=== PATIENT | male | born 1940 | race Caucasian/White ===

== ENCOUNTER 2020-05-06 20:45 | Emergency (ER) | payer MEDICARE ==
--- NOTE | 2020-05-06 21:38 | EDM.PDOC ---
ED HPI GENERAL MEDICAL PROBLEM - General Chief Complaint: Neuro Symptoms/Deficits Stated Complaint: MEMORY ISSUE Time Seen by Provider: 05/06/20 21:05 Source of Information: Reports: Patient, Family History Limitations: Reports: Altered Mental Status - History of Present Illness INITIAL COMMENTS - FREE TEXT/NARRATIVE: brought in by girlfriend of 30+ years She states she was baking cookies around noon , when he asked her about 6 times what she was doing despite telling him each time ( that was unusual for him) Asked her about dog they had put down about 2 days ago , where the dog was Asked her His eyes seemed very glazzy un like usual She called EMS for him no history of falls pt is on Eloquis for Afib ( irregular rhythm Onset: Today Onset Date: 05/06/20 Onset Time: 12:00 Duration: Hour(s): (8), Getting Worse Location: Reports: Head Improves with: Reports: None Worsens with: Reports: None Context: Denies: Trauma Associated Symptoms: Reports: No Other Symptoms - Related Data Allergies Allergy/AdvReac Type Severity Reaction Status Date / Time No Known Allergies Allergy Verified 05/06/20 21:34 Home Meds: Home Meds Apixaban [Eliquis] 5 mg PO DAILY 05/06/20 [History] Loratadine 10 mg PO DAILY PRN 05/06/20 [History] Metoprolol Tartrate 25 mg PO DAILY 05/06/20 [History] Simvastatin 40 mg PO DAILY 05/06/20 [History] allopurinoL [Zyloprim] 300 mg PO DAILY 05/06/20 [History] ED ROS GENERAL - Review of Systems Review Of Systems: See Below Constitutional: Denies: Fever, Chills, Malaise, Weakness HEENT: Reports: No Symptoms Respiratory: Reports: Shortness of Breath (at rest , chronically) Cardiovascular: Reports: Dyspnea on Exertion Endocrine: Reports: No Symptoms GI/Abdominal: Reports: No Symptoms : Reports: No Symptoms Musculoskeletal: Reports: No Symptoms Skin: Reports: No Symptoms Neurological: Reports: Confusion, Difficulty Walking, Gait Disturbance Psychiatric: Reports: No Symptoms Hematologic/Lymphatic: Reports: No Symptoms ED EXAM, NEURO - Physical Exam Exam: See Below Exam Limited By: No Limitations General Appearance: Alert, WD/WN, No Apparent Distress Eye Exam: Bilateral Eye: EOMI Ears: Normal External Exam, Normal Canal, Hearing Grossly Normal, Normal TMs Nose: Normal Inspection, Normal Mucosa Throat/Mouth: Normal Inspection, Normal Lips Head Exam: Atraumatic, Normocephalic Neck: Normal Inspection, Supple, Non-Tender, Full Range of Motion Respiratory/Chest: No Respiratory Distress, Lungs Clear, Normal Breath Sounds Cardiovascular: Normal Peripheral Pulses, Irregularly Irregular GI/Abdominal: Soft, Non-Tender Neurological: Alert, Normal Mood/Affect, Normal Dorsiflexion, CN II-XII Intact, Normal Gait, No Motor/Sensory Deficits, Oriented x 3 DTR: 2+: Patella (R), Patella (L) Back Exam: Normal Inspection, Full Range of Motion Extremities: Normal Inspection, Normal Range of Motion, Non-Tender, Pedal Edema Psychiatric: Normal Affect, Normal Mood Skin Exam: Warm, Dry, Intact *Q Meaningful Use (ADM) - VTE *Q VTE Mechanical Contraindications *Q: At Risk for Falls VTE Pharmacological Contraindications *Q: Risk of Bleeding VTE Anticoagulation Contraindications: Clinical Trial Particpnt - VTE Risk Assess *Q Each Risk Factor Represents 1 Point: None Total Score 1 Point Risk Factors: 0 - Tobacco (TOB) Core Measure 1:1 Practical Counseling Performed: N/A Course - Vital Signs Last Recorded V/S: Last Vital Signs Temp 35.6 C L 05/06/20 21:00 Pulse 71 05/06/20 21:00 Resp 20 05/06/20 22:15 BP 159/94 H 05/06/20 22:38 Pulse Ox 98 05/06/20 22:15 - Orders/Labs/Meds Orders: Active Orders 24 hr Category Date Time Status EKG Documentation Completion [RC] ASDIRECTED Care 05/06/20 21:30 Active Head wo Cont [CT] Stat Exams 05/06/20 21:28 Taken EKG 12 Lead [EK] Routine Ther 05/06/20 21:29 Ordered Labs: Laboratory Tests 05/06/20 05/06/20 05/06/20 Range/Units 21:22 21:22 21:22 WBC 8.9 (4.5-12.0) X10-3/uL RBC 5.10 (4.30-5.75) x10(6)uL Hgb 16.1 (13.5-17.8) g/dL Hct 47.0 (30.0-51.3) % MCV 92.1 (80-96) fL MCH 31.6 (27.7-33.6) pg MCHC 34.3 (32.2-35.4) g/dL RDW 12.7 (11.5-15.5) % Plt Count 236 (125-369) X10(3)uL PT (9.0-11.1) sec INR (1.00-1.24) Sodium 139 (135-145) mmol/L Potassium 4.2 (3.5-5.3) mmol/L Chloride 103 (100-110) mmol/L Carbon Dioxide 29 (21-32) mmol/L BUN 15 (7-18) mg/dL Creatinine 1.2 (0.70-1.30) mg/dL Est Cr Clr Drug Dosing 51.55 mL/min Estimated GFR (MDRD) 59 L (>60) BUN/Creatinine Ratio 12.5 (9-20) Glucose 98 (80-116) mg/dL Calcium 9.0 (8.6-10.2) mg/dL Magnesium 2.0 (1.8-2.5) mg/dL Total Bilirubin 0.6 (0.1-1.3) mg/dL AST 26 H (5-25) IU/L ALT 37 H (12-36) U/L Alkaline Phosphatase 126 H (56-112) IU/L Troponin I 7.0 (4.0-60.3) pg/mL C-Reactive Protein 1.3 H (0.5-0.9) mg/dL NT-Pro-B Natriuret Pep 958 H (<=450) pg/mL Total Protein 6.3 (6.0-8.0) g/dL Albumin 3.2 (3.2-4.6) g/dL Globulin 3.1 g/dL Albumin/Globulin Ratio 1.0 Urine Color (YELLOW) Urine Appearance (CLEAR) Urine pH (5.0-6.5) Ur Specific [place] (1.010-1.025) Urine Protein (NEGATIVE) mg/dL Urine Glucose (UA) (NORMAL) mg/dL Urine Ketones (NEGATIVE) mg/dL Urine Occult Blood (NEGATIVE) Urine Nitrite (NEGATIVE) Urine Bilirubin (NEGATIVE) Urine Urobilinogen (NEGATIVE) mg/dL Ur Leukocyte Esterase (NEGATIVE) Urine RBC (0-5) Urine WBC (0-5) Ur Squamous Epith Cells (NS,R,O) Urine Bacteria (NS) Urine Mucus (NS) 05/06/20 05/06/20 Range/Units 21:22 22:02 WBC (4.5-12.0) X10-3/uL RBC (4.30-5.75) x10(6)uL Hgb (13.5-17.8) g/dL Hct (30.0-51.3) % MCV (80-96) fL MCH (27.7-33.6) pg MCHC (32.2-35.4) g/dL RDW (11.5-15.5) % Plt Count (125-369) X10(3)uL PT 10.6 (9.0-11.1) sec INR 0.98 L (1.00-1.24) Sodium (135-145) mmol/L Potassium (3.5-5.3) mmol/L Chloride (100-110) mmol/L Carbon Dioxide (21-32) mmol/L BUN (7-18) mg/dL Creatinine (0.70-1.30) mg/dL Est Cr Clr Drug Dosing mL/min Estimated GFR (MDRD) (>60) BUN/Creatinine Ratio (9-20) Glucose (80-116) mg/dL Calcium (8.6-10.2) mg/dL Magnesium (1.8-2.5) mg/dL Total Bilirubin (0.1-1.3) mg/dL AST (5-25) IU/L ALT (12-36) U/L Alkaline Phosphatase (56-112) IU/L Troponin I (4.0-60.3) pg/mL C-Reactive Protein (0.5-0.9) mg/dL NT-Pro-B Natriuret Pep (<=450) pg/mL Total Protein (6.0-8.0) g/dL Albumin (3.2-4.6) g/dL Globulin g/dL Albumin/Globulin Ratio Urine Color Yellow (YELLOW) Urine Appearance Slightly cloudy (CLEAR) Urine pH 5.0 (5.0-6.5) Ur Specific [place] 1.020 (1.010-1.025) Urine Protein Trace (NEGATIVE) mg/dL Urine Glucose (UA) Normal (NORMAL) mg/dL Urine Ketones 15 H (NEGATIVE) mg/dL Urine Occult Blood Trace (NEGATIVE) Urine Nitrite Negative (NEGATIVE) Urine Bilirubin Negative (NEGATIVE) Urine Urobilinogen 1 H (NEGATIVE) mg/dL Ur Leukocyte Esterase Large H (NEGATIVE) Urine RBC 0-5 (0-5) Urine WBC 20-30 H (0-5) Ur Squamous Epith Cells Few H (NS,R,O) Urine Bacteria Few H (NS) Urine Mucus Moderate H (NS) - Re-Assessments/Exams Free Text/Narrative Re-Assessment/Exam: 05/06/20 23:28 pt was able to answer questions appropriately but seemed to forget other things had head CT done: ? Old subdural hematoma discussed with pt and friend , he needs to FU in clinic this week and get MRI done for further evaluation pt would have preffered to be seen in [place] but states it would l take long fo him to get Will see provider in the clinic her for possible MRI for further evaluation of symptoms 05/06/20 23:41 Unsure whether chronic subdural hematoma is new will need FU MRI Free Text/Narrative Re-Assessment/Exam: 05/06/20 23:40 MRI ordered for pt : will get this done in am 05/07/2020 Departure - Departure Time of Disposition: 11:45 Disposition: Home, Self-Care 01 Condition: Fair Clinical Impression: Memory deficit, Chronic subdural hematoma, Afib, Chronic anticoagulation - Discharge Information *PRESCRIPTION DRUG MONITORING PROGRAM REVIEWED*: Not Applicable *COPY OF PRESCRIPTION DRUG MONITORING REPORT IN PATIENT GERALD: Not Applicable Instructions: Bleeding Precautions When on Anticoagulant Therapy, Adult, Prev enting Atrial Fibrillation-Related Stroke Referrals: PCP,None [Primary Care Provider] - Forms: ED Department Discharge Additional Instructions: 1) make appointment to see a PCP in the clinic this week. You will need to get MRI done 2) if symptoms get worse , return to ER or the [place] [facility] 3) continue with all your medications Sepsis Event Note (ED) - Focused Exam Vital Signs: Vital Signs Temp Pulse Resp BP BP Pulse Ox 05/06/20 22:38 159/94 H 05/06/20 22:15 20 150/104 H 98 05/06/20 22:00 20 156/108 H 98 05/06/20 21:00 35.6 C L 71 22 H 168/102 H 96 - My Orders Last 24 Hours: My Active Orders 05/06/20 21:28 Head wo Cont [CT] Stat 05/06/20 21:29 EKG 12 Lead [EK] Routine 05/06/20 21:30 EKG Documentation Completion [RC] ASDIRECTED - Assessment/Plan Last 24 Hours: My Active Orders 05/06/20 21:28 Head wo Cont [CT] Stat 05/06/20 21:29 EKG 12 Lead [EK] Routine 05/06/20 21:30 EKG Documentation Completion [RC] ASDIRECTED
== END 2020-05-06 23:48 | disposition home or self-care (01) ==
LOC: FB.ED 20:45
DX: I62.03 Nontraumatic chronic subdural hemorrhage (principal); I48.91 Unspecified atrial fibrillation; I69.811 Memory deficit following other cerebrovascular disease; Z79.01 Long term (current) use of anticoagulants; Z79.899 Other long term (current) drug therapy
CPT/HCPCS: 36415; 70450; 80053; 81001; 83735; 83880; 84484; 85027; 85610; 86140; 93005; 93010; 99284; 99285-25

== ENCOUNTER 2021-01-14 15:16 | Emergency (ER) | payer MEDICARE, OTHER ==
--- NOTE | 2021-01-14 16:47 | EDM.PDOC ---
ED HPI GENERAL MEDICAL PROBLEM - General Stated Complaint: DIZZY SPELSS Time Seen by Provider: 01/14/21 15:20 Source of Information: Reports: Patient History Limitations: Reports: No Limitations - History of Present Illness INITIAL COMMENTS - FREE TEXT/NARRATIVE: Patient presented to the ED because of dizziness for 2 weeks. He said as soon as he gets uo he feels dizzy, lightheaded with associated tinnitus. He described it as spinning sensation which usually last for few seconds then resolves. There is no motor and sensory deficits during the episode of vertigo. - Related Data Allergies Allergy/AdvReac Type Severity Reaction Status Date / Time No Known Allergies Allergy Verified 05/06/20 21:34 Home Meds: Home Meds Apixaban [Eliquis] 5 mg PO DAILY 05/06/20 [History] Loratadine 10 mg PO DAILY PRN 05/06/20 [History] Metoprolol Tartrate 25 mg PO DAILY 05/06/20 [History] Simvastatin 40 mg PO DAILY 05/06/20 [History] allopurinoL [Zyloprim] 300 mg PO DAILY 05/06/20 [History] ED ROS GENERAL - Review of Systems Review Of Systems: See Below Constitutional: Reports: No Symptoms HEENT: Reports: No Symptoms Respiratory: Reports: No Symptoms Cardiovascular: Reports: No Symptoms Endocrine: Reports: No Symptoms GI/Abdominal: Reports: No Symptoms : Reports: No Symptoms Musculoskeletal: Reports: No Symptoms Skin: Reports: No Symptoms Neurological: Reports: Dizziness Psychiatric: Reports: No Symptoms Hematologic/Lymphatic: Reports: No Symptoms ED EXAM, NEURO - Physical Exam Exam: See Below Exam Limited By: No Limitations General Appearance: Alert, No Apparent Distress Eye Exam: Bilateral Eye: Proptosis Ears: Normal External Exam, Normal Canal Nose: Normal Inspection, Normal Mucosa, No Blood Throat/Mouth: Normal Inspection, Normal Lips, Normal Teeth, Normal Gums Head Exam: Atraumatic, Normocephalic Neck: Normal Inspection, Supple, Non-Tender, Full Range of Motion Respiratory/Chest: No Respiratory Distress, Lungs Clear, Normal Breath Sounds Cardiovascular: Normal Peripheral Pulses, Regular Rate, Rhythm, No Edema, No Gallop GI/Abdominal: Normal Bowel Sounds, Soft, Non-Tender, No Organomegaly Neurological: Alert, Normal Mood/Affect, Normal Dorsiflexion, CN II-XII Intact, Normal Plantar Flexion, Normal Gait, Normal Reflexes #1 Interpretation EKG Date: 01/14/21 Time: 15:22 Rhythm: A-Fib Rate (Beats/Min): 85 [place]: Normal P-Wave: Present QRS: Other (LAFB) ST-T: Normal QT: Normal Comparison: No Change EKG Interpretation Comments: Lab and EKG was reviewed and discussed with patient. Course - Vital Signs Last Recorded V/S: Last Vital Signs Temp 36.8 C 01/14/21 15:16 Pulse 92 01/14/21 15:16 Resp 20 01/14/21 15:16 BP 139/88 01/14/21 15:16 Pulse Ox 94 L 01/14/21 15:16 Orthostatic Blood Pressure [ 140/90 Standing] Orthostatic Blood Pressure [ 137/93 Sitting] Orthostatic Blood Pressure [ 132/86 Supine] - Orders/Labs/Meds Orders: Active Orders 24 hr Category Date Time Status Head wo Cont [CT] Stat Exams 01/14/21 16:08 Stop Req EKG 12 Lead [EK] Routine Ther 01/14/21 15:47 Ordered Labs: Laboratory Tests 01/14/21 01/14/21 01/14/21 Range/Units 15:55 15:55 15:55 WBC 8.7 (3.2-10.1) x10-3/uL RBC 5.12 (3.90-5.90) x10(6)uL Hgb 16.3 (12.9-17.7) g/dL Hct 49.3 (38.3-50.1) % MCV 96.2 (80.8-98.7) fL MCH 31.9 (27.0-33.3) pg MCHC 33.1 (28.7-35.3) g/dL RDW 13.8 (12.4-15.0) % Plt Count 188 (117-477) x10(3)uL MPV 9.9 (6.7-11.0) fL Neut % (Auto) 76.5 H (40.3-71.8) % Lymph % (Auto) 10.2 L (15.8-45.3) % [place] % (Auto) 10.2 (5.5-15.2) % Eos % (Auto) 2.4 (0.1-6.8) % Baso % (Auto) 0.7 (0.3-3.8) % Neut # (Auto) 6.6 (1.7-6.9) x10-3/uL Lymph # (Auto) 0.9 (0.5-4.5) x10-3/uL [place] # (Auto) 0.9 (0.0-1.2) x10-3/uL Eos # (Auto) 0.2 (0.0-0.6) x10-3/uL Baso # (Auto) 0.1 (0.0-0.3) x10-3/uL Sodium 147 H (135-145) mmol/L Potassium 4.6 (3.5-5.3) mmol/L Chloride 109 D (100-110) mmol/L Carbon Dioxide 26 (21-32) mmol/L BUN 29 H D (7-18) mg/dL Creatinine 1.4 H (0.70-1.30) mg/dL Est Cr Clr Drug Dosing 43.49 mL/min Estimated GFR (MDRD) 49 L (>60) BUN/Creatinine Ratio 20.7 H (9-20) Glucose 89 (80-116) mg/dL Calcium 8.8 (8.6-10.2) mg/dL Total Bilirubin 0.5 (0.1-1.3) mg/dL AST 31 H D (5-25) IU/L ALT 47 H D (12-36) U/L Alkaline Phosphatase 119 H (56-112) IU/L Troponin I 7.2 (4.0-60.3) pg/mL Total Protein 6.4 (6.0-8.0) g/dL Albumin 3.4 (3.2-4.6) g/dL Globulin 3.0 g/dL Albumin/Globulin Ratio 1.1 Departure - Departure Time of Disposition: 21:00 Disposition: Home, Self-Care 01 Condition: Good Clinical Impression: Vertigo, Dehydration - Discharge Information Instructions: Vertigo, [id number], Dehydration, Adult, [id number] Referrals: Darren Rose MD [Primary Care Provider] - Forms: ED Department Discharge Additional Instructions: Please read discharge instructions on vertigo and dehydration Drink at least 2 liters of water daily Follow up as needed Sepsis Event Note (ED) - Evaluation Sepsis Screening Result: No Definite Risk - My Orders Last 24 Hours: My Active Orders 01/14/21 15:47 EKG 12 Lead [EK] Routine 01/14/21 16:08 Head wo Cont [CT] Stat - Assessment/Plan Last 24 Hours: My Active Orders 01/14/21 15:47 EKG 12 Lead [EK] Routine 01/14/21 16:08 Head wo Cont [CT] Stat
== END 2021-01-14 16:52 | disposition home or self-care (01) ==
LOC: FB.ED 15:16
DX: R42 Dizziness and giddiness (principal); E86.0 Dehydration; Z79.01 Long term (current) use of anticoagulants; Z79.899 Other long term (current) drug therapy
CPT/HCPCS: 36415; 80053; 84484; 85025; 93005; 99284-25

== ENCOUNTER 2021-02-20 05:34 | Emergency (ER) | payer MEDICARE, OTHER ==
[2021-02-20] MEDS ORDERED: Sodium Chloride 0.9% 1,000 ML IV ONE (06:06)
[2021-02-20] MEDS ORDERED: Ketorolac 30 MG/ML SDV IVPUSH ONE (06:06)
--- NOTE | 2021-02-20 06:14 | EDM.PDOC ---
ED HPI GENERAL MEDICAL PROBLEM - General Chief Complaint: Back Pain or Injury Stated Complaint: KIDNEY STONE Time Seen by Provider: 02/20/21 05:55 Source of Information: Reports: Patient History Limitations: Reports: No Limitations - History of Present Illness INITIAL COMMENTS - FREE TEXT/NARRATIVE: c/o L flank pain pt awoke 1h [employer], he felt like he was going to have diarrhea altho never moved his bowels, he had sharp pain in his L hip that moved up to his lower back and across back, no 01/23, no n/v, no f/c/d had felt fine yesterday, slept fine, denies other sxs sitting comfortably when RN spoke to him, pacing in room with hand on L flank when I entered room had kidney stone once 2y ago, thinks it is the same never had abd surgery had usual BM yesterday SH: lives with Left Back Pain Score (Numeric/FACES): 7 - Related Data Allergies Allergy/AdvReac Type Severity Reaction Status Date / Time No Known Allergies Allergy Verified 05/06/20 21:34 Home Meds: Home Meds Apixaban [Eliquis] 5 mg PO DAILY 05/06/20 [History] Loratadine 10 mg PO DAILY PRN 05/06/20 [History] Metoprolol Tartrate 25 mg PO DAILY 05/06/20 [History] Simvastatin 40 mg PO DAILY 05/06/20 [History] allopurinoL [Zyloprim] 300 mg PO DAILY 05/06/20 [History] Past Medical History HEENT History: Reports: Allergic Rhinitis Cardiovascular History: Reports: Afib, High Cholesterol, Hypertension, Other (See Below) Neurological History: Reports: Vertigo, Other (See Below) Other Neuro History: memory deficit, chronic subdural hematoma Social & Family History - Family History Family Medical History: No Pertinent Family History - Tobacco Use Tobacco Use Status *Q: Never Tobacco User - Caffeine Use Caffeine Use: Reports: Coffee, Soda - Alcohol Use Days Per Week of Alcohol Use: 7 Number of Drinks Per Day: 1 Total Drinks Per Week: 7 - Recreational Drug Use Recreational Drug Use: No ED ROS GENERAL - Review of Systems Review Of Systems: See Below Constitutional: Reports: No Symptoms HEENT: Reports: No Symptoms Respiratory: Reports: No Symptoms Cardiovascular: Reports: No Symptoms Endocrine: Reports: No Symptoms GI/Abdominal: Reports: Abdominal Pain. Denies: Nausea, Vomiting : Reports: No Symptoms Musculoskeletal: Reports: No Symptoms Skin: Reports: No Symptoms Neurological: Reports: No Symptoms Psychiatric: Reports: No Symptoms Hematologic/Lymphatic: Reports: No Symptoms Immunologic: Reports: No Symptoms ED EXAM, GI/ABD - Physical Exam Exam: See Below Exam Limited By: No Limitations General Appearance: Alert, WD/WN, Mild Distress, Other (nonill) Nose: Normal Inspection Throat/Mouth: Normal Inspection, Normal Voice, No Airway Compromise Head: Atraumatic, Normocephalic Neck: Normal Inspection, Supple, Non-Tender, Full Range of Motion. No: Lymphadenopathy (R), Lymphadenopathy (L) Respiratory/Chest: No Respiratory Distress, Lungs Clear, Normal Breath Sounds, Chest Non-Tender Cardiovascular: Regular Rate, Rhythm, No Edema, No Gallop, No Murmur GI/Abdominal Exam: Soft, Other (rounded abd with adipose tissue that is baseline, 1-2+ tender at L flank, 1+ tender otherwise of abd to L of midline, nontender on R side, fair BS x 4, somewhat hypoactive, no inguinal LNs) Back Exam: Normal Inspection, Full Range of Motion, Other (1+ L CVAT, spine nontender, no spasm). No: Muscle Spasm, Vertebral Tenderness Extremities: Normal Inspection, Normal Range of Motion, Non-Tender, Other (trace pretib edema) Neurological: Alert, Oriented, CN II-XII Intact, Normal Cognition, No Motor/Sensory Deficits Psychiatric: Normal Affect, Normal Mood Skin Exam: Warm, Dry, Intact, Normal Color, No Rash Lymphatic: No Adenopathy Course - Vital Signs Last Recorded V/S: Last Vital Signs Temp 36.6 C 02/20/21 05:45 Pulse 83 02/20/21 05:45 Resp 18 02/20/21 05:45 BP 145/81 H 02/20/21 05:45 Pulse Ox 96 02/20/21 05:45 - Orders/Labs/Meds Orders: Active Orders 24 hr Category Date Time Status Abdomen Pelvis wo Cont [CT] Stat Exams 02/20/21 06:06 Ordered UA W/MICROSCOPIC [URIN] Stat Lab 02/20/21 06:06 Ordered Labs: Laboratory Tests 02/20/21 02/20/21 02/20/21 Range/Units 06:40 06:40 06:40 WBC 7.5 (3.2-10.1) x10-3/uL RBC 5.06 (3.90-5.90) x10(6)uL Hgb 15.8 (12.9-17.7) g/dL Hct 47.5 (38.3-50.1) % MCV 94.0 (80.8-98.7) fL MCH 31.2 (27.0-33.3) pg MCHC 33.2 (28.7-35.3) g/dL RDW 13.2 (12.4-15.0) % Plt Count 153 (117-477) x10(3)uL MPV 8.9 (6.7-11.0) fL Neut % (Auto) 73.6 H (40.3-71.8) % Lymph % (Auto) 13.1 L (15.8-45.3) % [place] % (Auto) 9.9 (5.5-15.2) % Eos % (Auto) 2.8 (0.1-6.8) % Baso % (Auto) 0.6 (0.3-3.8) % Neut # (Auto) 5.5 (1.7-6.9) x10-3/uL Lymph # (Auto) 1.0 (0.5-4.5) x10-3/uL [place] # (Auto) 0.7 (0.0-1.2) x10-3/uL Eos # (Auto) 0.2 (0.0-0.6) x10-3/uL Baso # (Auto) 0.0 (0.0-0.3) x10-3/uL Sodium 144 (135-145) mmol/L Potassium 4.4 (3.5-5.3) mmol/L Chloride 108 (100-110) mmol/L Carbon Dioxide 28 (21-32) mmol/L BUN 23 H (7-18) mg/dL Creatinine 1.3 (0.70-1.30) mg/dL Est Cr Clr Drug Dosing TNP Estimated GFR (MDRD) 53 L (>60) BUN/Creatinine Ratio 17.7 (9-20) Glucose 108 (80-116) mg/dL Calcium 8.5 L (8.6-10.2) mg/dL Total Bilirubin 0.9 (0.1-1.3) mg/dL AST 21 D (5-25) IU/L ALT 28 D (12-36) U/L Alkaline Phosphatase 106 (56-112) IU/L Troponin I 6.5 (4.0-60.3) pg/mL C-Reactive Protein 0.4 L (0.5-0.9) mg/dL Total Protein 5.8 L (6.0-8.0) g/dL Albumin 3.2 (3.2-4.6) g/dL Globulin 2.6 g/dL Albumin/Globulin Ratio 1.2 Lipase 80 (73-393) U/L Meds: Medications Discontinued Medications Generic Name Dose Route Start Last Admin Trade Name Freq PRN Reason Stop Dose Admin Sodium Chloride 1,000 mls @ 999 mls/hr 02/20/21 06:06 02/20/21 06:15 Normal Saline IV 02/20/21 07:06 999 mls/hr .BOLUS ONE Administration Ketorolac Tromethamine 30 mg 02/20/21 06:06 02/20/21 06:15 Ketorolac 30 Mg/Ml Sdv IVPUSH 02/20/21 06:07 30 mg ONETIME ONE Administration Morphine Sulfate 2 mg 02/20/21 06:35 02/20/21 06:39 Morphine 2 Mg/Ml Syringe IVPUSH 02/20/21 06:36 2 mg ONETIME ONE Administration - Re-Assessments/Exams Free Text/Narrative Re-Assessment/Exam: 02/20/21 07:[address] Smith at 7a at change of shift, u/a and CT results pending, pt aware labs unremarkable Departure - Departure Time of Disposition: 07:13 Disposition: Still A Patient 30 Condition: Good Clinical Impression: Acute left flank pain - Discharge Information *PRESCRIPTION DRUG MONITORING PROGRAM REVIEWED*: Not Applicable *COPY OF PRESCRIPTION DRUG MONITORING REPORT IN PATIENT GERALD: Not Applicable Referrals: Darren Rose MD [Primary Care Provider] - Forms: ED Department Discharge Sepsis Event Note (ED) - Evaluation Sepsis Screening Result: No Definite Risk - Focused Exam Vital Signs: Vital Signs Temp Pulse Resp BP Pulse Ox 02/20/21 05:45 36.6 C 83 18 145/81 H 96 - My Orders Last 24 Hours: My Active Orders 02/20/21 06:06 Abdomen Pelvis wo Cont [CT] Stat UA W/MICROSCOPIC [URIN] Stat - Assessment/Plan Last 24 Hours: My Active Orders 02/20/21 06:06 Abdomen Pelvis wo Cont [CT] Stat UA W/MICROSCOPIC [URIN] Stat
[2021-02-20] MEDS ORDERED: Morphine 2 MG/ML SYRINGE IM ONE (06:30)
[2021-02-20] MEDS ORDERED: Morphine 2 MG/ML SYRINGE IVPUSH ONE (06:35)
[2021-02-20] MEDS ORDERED: Morphine 2 MG/ML SYRINGE IVPUSH STA (08:11)
== END 2021-02-20 08:55 | disposition home or self-care (01) ==
LOC: FB.ED 05:34
DX: R10.9 Unspecified abdominal pain (principal); I48.91 Unspecified atrial fibrillation; I10 Essential (primary) hypertension; E78.00 Pure hypercholesterolemia, unspecified; Z79.899 Other long term (current) drug therapy; Z79.01 Long term (current) use of anticoagulants
CPT/HCPCS: 36415; 74176; 80053; 81001; 83690; 84484; 85025; 86140; 96374; 96375; 96376; 99284; J1885; J2270; J7030

== ENCOUNTER 2021-12-06 01:45 | Emergency (ER) | payer MEDICARE, OTHER ==
[2021-12-06] MEDS ORDERED: Acetaminophen/HYDROcodone 325-7.5 MG Tab PO ONE (01:46)
[2021-12-06] MEDS ORDERED: Sodium Chloride 0.9% 10 ML Syringe FLUSH PRN (02:14)
[2021-12-06] MEDS ORDERED: Nitroglycerin 0.4 MG Tab.SL SL PRN (02:14)
[2021-12-06] MEDS ORDERED: Ketorolac 30 MG/ML SDV IVPUSH ONE (02:24)
== END 2021-12-06 03:14 | disposition home or self-care (01) ==
LOC: FB.ED 01:45
DX: R07.81 Pleurodynia (principal); E78.00 Pure hypercholesterolemia, unspecified; I10 Essential (primary) hypertension; Z79.01 Long term (current) use of anticoagulants; Z79.899 Other long term (current) drug therapy
CPT/HCPCS: 36415; 80048; 84484; 85027; 85379; 93005; 96374; 99283; 99283-25; A9270-GY; J1885; J3490

== ENCOUNTER 2022-04-07 08:44 | Emergency (ER) | payer MEDICARE, OTHER | END 2022-04-07 12:13 | disposition home or self-care (01) | LOC: FB.ED 08:44 | DX: S82.435A Nondisplaced oblique fracture of shaft of left fibula, initial encounter for closed fracture (principal); S80.211A Abrasion, right knee, initial encounter; E78.00 Pure hypercholesterolemia, unspecified; I10 Essential (primary) hypertension; E66.9 Obesity, unspecified; Z68.34 Body mass index [BMI] 34.0-34.9, adult; Z79.01 Long term (current) use of anticoagulants; Z79.899 Other long term (current) drug therapy; V18.0XXA Pedal cycle driver injured in noncollision transport accident in nontraffic accident, initial encounter | CPT/HCPCS: 71101-LT; 73562-RT; 73610-50; 99283 ==

== ENCOUNTER 2023-02-28 09:35 | Inpatient (IN) | payer OTHER, MEDICARE ==
[2023-02-28] MEDS ORDERED: Albuterol 8 GM Inhaler INH PRN (14:52)
[2023-02-28] MEDS ORDERED: Sennosides/Docusate Sodium 50-8.6 MG Tab PO PRN (14:52)
[2023-02-28] MEDS ORDERED: Codeine/guaiFENesin 10-100 MG/5 ML Syrup 5 ML Cup PO PRN (14:52)
[2023-02-28] MEDS ORDERED: Polyethylene Glycol 3350 Powder 17 GM Packet PO PRN (15:08)
[2023-02-28] MEDS ORDERED: Acetaminophen 325 MG Tab PO PRN (15:08)
[2023-02-28] MEDS: Acetaminophen 500 MG Tab PO SCH ×2 (16:43→21:06)
[2023-02-28] MEDS: oxyCODONE 5 MG Tab PO PRN (16:45)
[2023-02-28] MEDS: Calcium Carbonate 500 MG Tablet PO SCH (18:55)
[2023-02-28] MEDS: Apixaban 5 MG Tab PO SCH (21:08)
[2023-02-28] MEDS: Simvastatin 40 MG Tab PO SCH (21:08)
[2023-02-28] MEDS: Metoprolol Tartrate 25 MG Tab PO SCH (21:08)
[2023-03-01] MEDS: Acetaminophen 500 MG Tab PO SCH ×5 (04:54→21:03)
[2023-03-01] MEDS: Calcium Carbonate 500 MG Tablet PO SCH ×2 (08:26→17:54)
[2023-03-01] MEDS: Apixaban 5 MG Tab PO SCH ×2 (08:27→21:03)
[2023-03-01] MEDS: Furosemide 40 MG Tab PO SCH (08:27)
[2023-03-01] MEDS: Metoprolol Tartrate 25 MG Tab PO SCH ×2 (08:28→21:04)
[2023-03-01] MEDS: Cholecalciferol (Vitamin D3) 25 MCG Tab PO SCH (08:28)
[2023-03-01] MEDS: Allopurinol 300 MG Tab PO SCH (08:28)
[2023-03-01] MEDS: oxyCODONE 5 MG Tab PO PRN (11:54)
[2023-03-01] MEDS: Simvastatin 40 MG Tab PO SCH (21:03)
[2023-03-02] MEDS: Acetaminophen 500 MG Tab PO SCH ×3 (06:01→17:52)
[2023-03-02] MEDS: oxyCODONE 5 MG Tab PO PRN ×2 (08:35→17:05)
[2023-03-02] MEDS: Allopurinol 300 MG Tab PO SCH (08:35)
[2023-03-02] MEDS: Calcium Carbonate 500 MG Tablet PO SCH ×2 (08:36→17:52)
[2023-03-02] MEDS: Apixaban 5 MG Tab PO SCH ×2 (08:36→20:14)
[2023-03-02] MEDS: Furosemide 40 MG Tab PO SCH (08:36)
[2023-03-02] MEDS: Metoprolol Tartrate 25 MG Tab PO SCH ×2 (08:37→20:14)
[2023-03-02] MEDS: Cholecalciferol (Vitamin D3) 25 MCG Tab PO SCH (08:39)
[2023-03-02] MEDS: Simvastatin 40 MG Tab PO SCH (20:15)
[2023-03-03] MEDS: Acetaminophen 500 MG Tab PO SCH ×5 (05:44→22:59)
[2023-03-03] MEDS: Cholecalciferol (Vitamin D3) 25 MCG Tab PO SCH (08:59)
[2023-03-03] MEDS: Furosemide 40 MG Tab PO SCH (08:59)
[2023-03-03] MEDS: Allopurinol 300 MG Tab PO SCH (08:59)
[2023-03-03] MEDS: Apixaban 5 MG Tab PO SCH ×2 (08:59→20:11)
[2023-03-03] MEDS: Calcium Carbonate 500 MG Tablet PO SCH ×2 (08:59→18:05)
[2023-03-03] MEDS: Metoprolol Tartrate 25 MG Tab PO SCH ×2 (09:01→20:11)
[2023-03-03] MEDS: Simvastatin 40 MG Tab PO SCH (20:10)
[2023-03-04] MEDS: Acetaminophen 500 MG Tab PO SCH ×4 (03:45→21:32)
[2023-03-04] MEDS: Calcium Carbonate 500 MG Tablet PO SCH ×2 (07:40→17:28)
[2023-03-04] MEDS: Furosemide 40 MG Tab PO SCH ×2 (07:41→10:48)
[2023-03-04] MEDS: Apixaban 5 MG Tab PO SCH ×3 (07:41→21:32)
[2023-03-04] MEDS: Allopurinol 300 MG Tab PO SCH ×2 (07:43→10:49)
[2023-03-04] MEDS: Cholecalciferol (Vitamin D3) 25 MCG Tab PO SCH ×2 (07:43→08:02)
[2023-03-04] MEDS: Metoprolol Tartrate 25 MG Tab PO SCH ×3 (07:44→21:32)
[2023-03-04] MEDS: oxyCODONE 5 MG Tab PO PRN (21:32)
[2023-03-04] MEDS: Simvastatin 40 MG Tab PO SCH (21:32)
[2023-03-05] MEDS: Acetaminophen 500 MG Tab PO SCH ×4 (03:18→21:32)
[2023-03-05] MEDS: Calcium Carbonate 500 MG Tablet PO SCH ×2 (08:12→18:24)
[2023-03-05] MEDS: Metoprolol Tartrate 25 MG Tab PO SCH ×2 (08:12→21:32)
[2023-03-05] MEDS: Cholecalciferol (Vitamin D3) 25 MCG Tab PO SCH (08:12)
[2023-03-05] MEDS: Allopurinol 300 MG Tab PO SCH (08:12)
[2023-03-05] MEDS: Apixaban 5 MG Tab PO SCH ×2 (08:12→21:32)
[2023-03-05] MEDS: Furosemide 40 MG Tab PO SCH (08:14)
[2023-03-05] MEDS: oxyCODONE 5 MG Tab PO PRN (15:47)
[2023-03-05] MEDS: Simvastatin 40 MG Tab PO SCH (21:32)
[2023-03-06] MEDS: Acetaminophen 500 MG Tab PO SCH ×2 (04:51→09:21)
[2023-03-06] MEDS: Apixaban 5 MG Tab PO SCH ×2 (08:16→20:46)
[2023-03-06] MEDS: Furosemide 40 MG Tab PO SCH (08:16)
[2023-03-06] MEDS: Calcium Carbonate 500 MG Tablet PO SCH ×2 (08:16→17:03)
[2023-03-06] MEDS: Cholecalciferol (Vitamin D3) 25 MCG Tab PO SCH (08:17)
[2023-03-06] MEDS: Allopurinol 300 MG Tab PO SCH (08:17)
[2023-03-06] MEDS: Metoprolol Tartrate 25 MG Tab PO SCH ×2 (08:17→20:47)
[2023-03-06] MEDS ORDERED: Acetaminophen 325 MG Tab PO SCH (10:00)
[2023-03-06] MEDS: Hydrocortisone 2.5% Crm 30 GM Tube TOP SCH ×2 (10:36→20:46)
[2023-03-06] MEDS: Acetaminophen 325 MG Tab PO SCH ×2 (17:04→22:00)
[2023-03-06] MEDS: Simvastatin 40 MG Tab PO SCH (20:48)
[2023-03-07] MEDS: Acetaminophen 325 MG Tab PO SCH ×4 (04:59→21:39)
[2023-03-07] MEDS: Acetaminophen/HYDROcodone 325-5 MG Tab PO PRN (08:38)
[2023-03-07] MEDS: Calcium Carbonate 500 MG Tablet PO SCH ×2 (08:39→17:29)
[2023-03-07] MEDS: Furosemide 40 MG Tab PO SCH (08:39)
[2023-03-07] MEDS: Cholecalciferol (Vitamin D3) 25 MCG Tab PO SCH (08:39)
[2023-03-07] MEDS: Allopurinol 300 MG Tab PO SCH (08:40)
[2023-03-07] MEDS: Metoprolol Tartrate 25 MG Tab PO SCH ×2 (08:40→20:44)
[2023-03-07] MEDS: Apixaban 5 MG Tab PO SCH ×2 (08:41→20:43)
[2023-03-07] MEDS: Hydrocortisone 2.5% Crm 30 GM Tube TOP SCH ×2 (08:42→20:43)
[2023-03-07] MEDS: Simvastatin 40 MG Tab PO SCH (20:44)
[2023-03-08] MEDS: Acetaminophen 325 MG Tab PO SCH ×4 (04:00→21:36)
[2023-03-08] MEDS: Acetaminophen/HYDROcodone 325-5 MG Tab PO PRN (07:27)
[2023-03-08] MEDS: Calcium Carbonate 500 MG Tablet PO SCH ×2 (07:28→19:05)
[2023-03-08] MEDS: Cholecalciferol (Vitamin D3) 25 MCG Tab PO SCH ×2 (07:32→08:03)
[2023-03-08] MEDS: Allopurinol 300 MG Tab PO SCH ×2 (07:33→08:03)
[2023-03-08] MEDS: Apixaban 5 MG Tab PO SCH ×3 (07:33→21:34)
[2023-03-08] MEDS: Hydrocortisone 2.5% Crm 30 GM Tube TOP SCH ×3 (07:33→21:35)
[2023-03-08] MEDS: Metoprolol Tartrate 25 MG Tab PO SCH ×3 (07:34→21:35)
[2023-03-08] MEDS: Furosemide 40 MG Tab PO SCH (08:03)
[2023-03-08] MEDS: Simvastatin 40 MG Tab PO SCH (21:36)
[2023-03-09] MEDS: Acetaminophen 325 MG Tab PO SCH ×4 (04:04→21:00)
[2023-03-09] MEDS: Calcium Carbonate 500 MG Tablet PO SCH ×2 (08:53→17:31)
[2023-03-09] MEDS: Hydrocortisone 2.5% Crm 30 GM Tube TOP SCH ×2 (08:53→20:56)
[2023-03-09] MEDS: Apixaban 5 MG Tab PO SCH ×2 (08:53→20:56)
[2023-03-09] MEDS: Cholecalciferol (Vitamin D3) 25 MCG Tab PO SCH (08:53)
[2023-03-09] MEDS: Furosemide 40 MG Tab PO SCH (08:53)
[2023-03-09] MEDS: Metoprolol Tartrate 25 MG Tab PO SCH ×2 (08:54→20:56)
[2023-03-09] MEDS: Allopurinol 300 MG Tab PO SCH (08:54)
[2023-03-09] MEDS: Acetaminophen/HYDROcodone 325-5 MG Tab PO PRN (20:54)
[2023-03-09] MEDS: Simvastatin 40 MG Tab PO SCH (20:56)
[2023-03-10] MEDS: Acetaminophen 325 MG Tab PO SCH ×4 (03:51→22:17)
[2023-03-10] MEDS: Furosemide 40 MG Tab PO SCH (08:32)
[2023-03-10] MEDS: Allopurinol 300 MG Tab PO SCH (08:33)
[2023-03-10] MEDS: Cholecalciferol (Vitamin D3) 25 MCG Tab PO SCH (08:33)
[2023-03-10] MEDS: Calcium Carbonate 500 MG Tablet PO SCH ×2 (08:33→16:59)
[2023-03-10] MEDS: Metoprolol Tartrate 25 MG Tab PO SCH ×2 (08:33→20:39)
[2023-03-10] MEDS: Apixaban 5 MG Tab PO SCH ×2 (08:33→20:39)
[2023-03-10] MEDS: Hydrocortisone 2.5% Crm 30 GM Tube TOP SCH ×2 (08:34→20:39)
[2023-03-10] MEDS: Simvastatin 40 MG Tab PO SCH (20:38)
[2023-03-11] MEDS: Acetaminophen 325 MG Tab PO SCH ×4 (04:19→21:00)
[2023-03-11] MEDS: Calcium Carbonate 500 MG Tablet PO SCH ×2 (07:54→18:08)
[2023-03-11] MEDS: Hydrocortisone 2.5% Crm 30 GM Tube TOP SCH ×2 (09:03→20:30)
[2023-03-11] MEDS: Apixaban 5 MG Tab PO SCH ×2 (09:03→20:30)
[2023-03-11] MEDS: Allopurinol 300 MG Tab PO SCH (09:04)
[2023-03-11] MEDS: Furosemide 40 MG Tab PO SCH (09:04)
[2023-03-11] MEDS: Cholecalciferol (Vitamin D3) 25 MCG Tab PO SCH (09:04)
[2023-03-11] MEDS: Metoprolol Tartrate 25 MG Tab PO SCH ×2 (09:06→20:31)
[2023-03-11] MEDS: Simvastatin 40 MG Tab PO SCH (20:31)
[2023-03-12] MEDS: Acetaminophen 325 MG Tab PO SCH ×4 (03:55→21:24)
[2023-03-12] MEDS: Calcium Carbonate 500 MG Tablet PO SCH ×2 (08:57→19:03)
[2023-03-12] MEDS: Apixaban 5 MG Tab PO SCH ×2 (08:58→21:23)
[2023-03-12] MEDS: Furosemide 40 MG Tab PO SCH (08:59)
[2023-03-12] MEDS: Hydrocortisone 2.5% Crm 30 GM Tube TOP SCH ×2 (08:59→21:23)
[2023-03-12] MEDS: Cholecalciferol (Vitamin D3) 25 MCG Tab PO SCH (09:00)
[2023-03-12] MEDS: Allopurinol 300 MG Tab PO SCH (09:01)
[2023-03-12] MEDS: Metoprolol Tartrate 25 MG Tab PO SCH ×2 (09:03→21:23)
[2023-03-12] MEDS: Simvastatin 40 MG Tab PO SCH (21:24)
[2023-03-13] MEDS: Acetaminophen 325 MG Tab PO SCH ×2 (05:10→13:33)
[2023-03-13] MEDS: Calcium Carbonate 500 MG Tablet PO SCH (08:08)
[2023-03-13] MEDS: Apixaban 5 MG Tab PO SCH (08:09)
[2023-03-13] MEDS: Hydrocortisone 2.5% Crm 30 GM Tube TOP SCH (08:09)
[2023-03-13] MEDS: Allopurinol 300 MG Tab PO SCH (08:10)
[2023-03-13] MEDS: Metoprolol Tartrate 25 MG Tab PO SCH (08:10)
[2023-03-13] MEDS: Cholecalciferol (Vitamin D3) 25 MCG Tab PO SCH (08:10)
[2023-03-13] MEDS: Furosemide 40 MG Tab PO SCH (08:10)
== END 2023-03-13 15:15 | disposition home health service (06) | DRG 561 ==
LOC: FB.MS 13:09
PROVIDERS: ADMIT Family Medicine; ATTEND Student in an Organized Health Care Education/Training Program
DX: S82.892D Other fracture of left lower leg, subsequent encounter for closed fracture with routine healing (principal); S52.501D Unspecified fracture of the lower end of right radius, subsequent encounter for closed fracture with routine healing; E66.9 Obesity, unspecified; I10 Essential (primary) hypertension; I48.0 Paroxysmal atrial fibrillation; E78.00 Pure hypercholesterolemia, unspecified; Z79.01 Long term (current) use of anticoagulants; Z79.899 Other long term (current) drug therapy; Z68.30 Body mass index [BMI] 30.0-30.9, adult
CPT/HCPCS: 94150; 97110-GP; 97116-GP; 97161-GP; 97165-GO; 97530-GO; 97530-GP; 97535-GO; 99305; 99316; A9270-GY